=== PATIENT | male | born 1950 | race Caucasian/White ===

== ENCOUNTER 2017-04-13 05:53 | Day surgery (SDC) | payer OTHER ==
[~2017-04-13] VITALS: Ht 177.8 cm; Wt 88.9 kg
[2017-04-13] MEDS ORDERED: NS 1000P @30 MLS/HR (KVO) IV SCH (06:15)
[2017-04-13] MEDS ORDERED: ATEN25TA PO (06:45)
[2017-04-13] MEDS ORDERED: RAMI10CA PO (06:45)
[2017-04-13] MEDS ORDERED: OMEG100010 PO (06:45)
[2017-04-13] MEDS ORDERED: CLOP75TA PO (06:45)
[2017-04-13] MEDS ORDERED: ROSU40 PO (06:45)
[2017-04-13] MEDS ORDERED: FOLI-11 PO (06:45)
[2017-04-13] MEDS ORDERED: ASPI81CH37 CHEW (06:45)
[2017-04-13 06:46] VITALS: BP 163/85; PULSE 54; RESP 17; TEMP 98.1; O2SAT 99
[2017-04-13 07:13] LABS: BASOPHIL # 0.1 TH/MM3 (0-0.2); BASOPHIL % 1.5 % (0.0-2.0); EOSINOPHIL # 0.3 TH/MM3 (0-0.4); EOSINOPHIL % 3.9 % (0.0-4.0); HEMATOCRIT 46.9 % (39.0-51.0); HEMO FLAGS DIFF FINAL; LYMPH % 23.7 % (9.0-44.0); LYMPHOCYTE # 1.6 TH/MM3 (1.0-4.8); MEAN CELL VOLUME 92.6 FL (80.0-100.0); MEAN CORPUSCULAR HEMOGLOBIN 30.9 PG (27.0-34.0); MEAN CORPUSCULAR HGB CONC 33.4 % (32.0-36.0); MONO % 11.4 % (0.0-8.0); NEUT % 59.5 % (16.0-70.0); PLATELET COUNT 237 TH/MM3 (150-450); RED BLOOD COUNT 5.07 MIL/MM3 (4.50-5.90); WHITE BLOOD COUNT 6.7 TH/MM3 (4.0-11.0)
[2017-04-13 07:20] LABS: APTT (PATIENT) 29.2 SEC (24.3-30.1); PROTHROMBIN TIME - PATIENT 11.1 SEC (9.8-11.6)
[2017-04-13 07:26] LABS: BICARBONATE 29.1 MEQ/L (21.0-32.0); POTASSIUM 3.7 MEQ/L (3.5-5.1)
[2017-04-13] MEDS ORDERED: IOHEXOL 350 MG/ML 100 ML BTL (for Cath Lab) OTHER ONE (07:41)
[2017-04-13] MEDS ORDERED: IOHEXOL 350 MG/ML 50 ML BTL (for Cath Lab) OTHER ONE (07:41)
[2017-04-13] MEDS ORDERED: HEPARIN-NS/PF INJ 500 ML ONE (07:47)
[2017-04-13] MEDS ORDERED: MIDAZOLAM HCL 2 MG/2 ML VIAL ONE ×3 (07:47→09:12)
--- NOTE | 2017-04-13 10:11 | CATHPROC ---
[place] HIS Report Study Information Study Number Admission Scheduled Start Study Start Apr 13 2017 5:53AM 04/13/2017 Apr 13 2017 7:41AM [place] Service Cardiac Catheterization Admit Source Facility Department Other [facility] - Search Engine Marketing Manager Physician and Clinical Staff Initial Shannan Contreras Hammer Smith Akua Mckenna,RN Recorder Gerald Bravo RCIS(BS) Scrub Sean BolañosRT(R) Procedures Performed Procedure Location (Site) Vessel Name Angiogram LV LV Ventricle Coronary Angiograms LCA Left Coronary Coronary Angiograms RCA Right Coronary Coronary Angiograms CHAMBERLAIN-LAD Left Coronary Coronary Angiograms SVG-DIAG Left Coronary Coronary Angiograms SVG-OM CIRC Coronary Angiograms SVG-RCA Right Coronary L Heart Cath Equipment Time Coat Agent Description Size Mfg Part Number Used/Scraped TRANSDUCER, TRUWAVE [id number] 08:05 VIGIL MCKENNA * Used W/STOCKCOCK *[id number] TRANSDUCER, TRUWAVE [id number] 08:22 VIGIL MCKENNA * Used W/STOCKCOCK *[id number]-502-10.0- INTRODUCER SET, 08:22 [employer] FR 5 SC-NT-U-SST Used MICROPUNCTURE, STIFFENED *[id number] 538-476 *[id number] [phone] *[id number] [phone] *[id number] [phone] *[id number] [phone] *[id number] [phone] *[id number] 538-453S *[id number] 08:22 [employer] PACK, CCL CUSTOM * Used *[id number] 08:22 [employer] PACER PEN, SKIN DUAL W/ RULER * Used *[id number] 08:22 [employer] MEDICAL WIRE, 3MMJ .035 180CM 180CM Used *[id number] 08:05 [employer] MEDICAL WIRE, 3MMJ .035 180CM 180CM Used *[id number] PROBE COVER, STERILE [id number] 08:22 [employer] * Used ULTRASOUND W/ GEL *[id number] 08:22 NAMIC MANIFOLD, 4 PORT * Used *[id number] 08:13 [employer]COMED OMNIPAQUE, 350 MG, 150ML 150ML [id number] Used 08:13 NYCOMED OMNIPAQUE, 350 MG, 150ML 150ML [id number] Used [id number] 08:22 TRIANA MEDICAL BLANKET,WARM AIR CCL * Used *[id number] 08:22 TERUMO MEDICAL SHEATH, FR4 TERUMO (10CM) FR 4 [id number] Used History: Allergies Allergy Reaction No Known Allergies History: Risk Factors Family History of Hypertension Dyslipidemia Previous LA Previous Heart Failure Premature CAD Yes Yes Yes No No Prior Valve Prior PCI Prior CABG Prior CABGDate Surgery No No Yes 11/12/1996 Cerebrovascular Peripheral Artery Chronic Lung On Dialysis Diabetes Disease Disease Disease No No No No No History: Stress Tests Stress or Imaging Studies Performed No History: Other Current Smoker Method Quit Packs a Day Years Used Pack Years No Cigarettes 1 Years Ago 1 20 20 Labs Hgb (g/dl) Hct (%) WBC (l/cumm) Platelets (thousands) 12.00-18.00 37.00-55.00 4.80-10.80 140.00-450.00 5.0 46.9 6.7 237 Glucose (mg/dl) BUN (mg/dl) Creatinine (mg/dl) BUN:Creatinine (1:x) 60.00-110.00 8.00-20.00 0.10-9.00 10.00-20.00 101 12 0.9 13.3 Na (meq/l) K (meq/l) 138.00-146.00 3.80-5.10 140 3.7 INR (PTT:PT) 0.50-2.00 1 CPK-MB (ng/ML) 0.00-7.00 Not Drawn Medication Medication Total Dose (Bolus/Oral) Medication Total Dosage/Unit 1% XYLOCAINE 20 mL FENTANYL 50 mcg VERSED 6 mg Medications (Bolus/Oral) Medication Time Given Dosage/Unit Administered By Reason VERSED 04/13/2017 8:36:00 AM 2 mg Akua Mckenna 2 mg VERSED given in lab by Akua Mckenna, RN in Left Antecubital via Peripheral IV. Ordered by Shannan Jensen. FENTANYL 04/13/2017 8:43:19 AM 50 mcg Akua Mckenna 50 mcg FENTANYL given in lab by Akua Mckenna, RN in Left Antecubital via Peripheral IV. Ordered by Shannan Cavanaugh. 1% XYLOCAINE 04/13/2017 8:46:01 AM 20 mL Shannan Cavanaugh 20 mL 1% XYLOCAINE given in lab by Shannan Cavanaugh in Right Groin via Subcutaneous. Ordered by Shannan Enrique. VERSED 04/13/2017 8:49:29 AM 1 mg Mckenna, Akua 1 mg VERSED given in lab by Akua Mckenna RN in Left Antecubital via Peripheral IV. Ordered by Shannan Jensen. VERSED 04/13/2017 8:52:00 AM 1 mg Mckenna, Akua 1 mg VERSED given in lab by Akua Mckenna RN in Left Antecubital via Peripheral IV. Ordered by Shannan Jensen. VERSED 04/13/2017 9:13:00 AM 1 mg Mckenna, Akua 1 mg VERSED given in lab by Akua Mckenna RN in Left Antecubital via Peripheral IV. Ordered by Shnanan Jensen. VERSED 04/13/2017 9:18:00 AM 1 mg Mckenna, Akua 1 mg VERSED given in lab by Akua Mckenna RN in Left Antecubital via Peripheral IV. Ordered by Shannan Jensen. Medication (Drip) Medication Time Given Dosage/Unit Concentration/Unit Diluent (ml) Solution IV Solutions 04/13/2017 7:42:17 AM 0 mL (IV) 500 NaCl .9 Patient arrived on IV Solutions in Left Antecubital via Peripheral IV. Pump/Drip Flow = 20 ml/hr usin g NaCl .9. Ordered by Shannan Cavanaugh. Initial Case Assessment Cardiovascular HR Rhythm NIBP Chest Pain 55 SINUS GALDINO 161/82 0 Edema Present Skin color Skin None Normal Warm Dry Circulatory - Right Pulses Dorsalis Pedis Femoral 2 2 Scale (0,1,2,3,4,d) Circulatory - Left Pulses Dorsalis Pedis Femoral 2 2 Scale (0,1,2,3,4,d) Circulatory - Lower Extremities Color Lower Right Color Lower Left Normal Normal Neurological State Oriented to time-place- Alert Moves all extremities person Respiration - General Respiration Rate SpO2 (%) (B/min) 18 100 Final Case Assessment Cardiovascular HR Rhythm NIBP Chest Pain 55 SINUS GALDINO 161/82 0 Edema Present Skin color Skin None Normal Warm Dry Circulatory - Right Pulses Dorsalis Pedis Femoral 2 2 Scale (0,1,2,3,4,d) Circulatory - Left Pulses Dorsalis Pedis Femoral 2 2 Scale (0,1,2,3,4,d) Circulatory - Lower Extremities Color Lower Right Color Lower Left Normal Normal Neurological State Oriented to time-place- Alert Moves all extremities person Respiration - General Respiration Rate SpO2 (%) (B/min) 18 100 Chronological Log Time Study Chronological Log 7:41:49 Patient arrived via Bed. 7:41:50 Patient Name, D.O.B, / Armband Verified By R.N. 7:41:51 Consent signed by the physician and the patient and verified by the Search Engine Marketing Manager staff. 7:41:52 Pre-op and post- op instructions given; patient acknowledges understanding of instructions. 7:41:54 Verbal Stimulation=2 Physical Stimulation=2 Airway=2 Respiration=2 TOTAL=8. (0=absent, 1=li mited, 2=present) 7:42:12 Patient has been NPO for Less than 6Hrs. 7:42:13 Skin Breakdown- 7:42:13 Patient Warmer Placed on the Table. 7:42:16 A # 20 IV was noted in the Antecubital (left). Grade = 0 Patient arrived on IV Solutions in Left Antecubital via Peripheral IV. Pump/Drip Flow = 20 ml/h r using NaCl .9. Ordered 7:42:17 by Shannan Cavanaugh. 7:42:17 History and physical on the chart or being dictated. Assessment: Initial Case, HR=55 BPM, Rhythm=SINUS GALDINO, OQNR=096/82 mmhg, Chest Pain=0, Edema=N one, Color=Normal, Skin = Warm, Dry Right Pulses: Shan Ped=2, Femoral=2 Left Pulses: Shan Ped=2, Femoral=2 7:42:18 Lower Right Extremities: Color=Normal Lower Left Extremities: Color=Normal Neurological: State=Alert, Ox3, [place] Respiration: Resp=18 B/min, XeT0=058 % Vitals capture started with the following parameters, Patient=Adult, Interval=5 min, Initial Pre pbpam=844 mmHg, 7:48:36 Deflation Rate=5 mmHg 7:49:16 HR=52 bpm, SXRU=460/84 mmhg, OlN1=669.0 %, Resp=16 B/min, Pain=0, Moncho=10, Tinoco=2 7:55:02 HR=51 bpm, DSIV=433/82 mmhg, NwY4=947.0 %, Resp=16 B/min, Pain=0, Moncho=10, Tinoco=2 7:56:50 Pressure channel 1 zeroed. 7:59:18 HR=53 bpm, LCQP=638/86 mmhg, SpO2=99.0 %, Resp=16 B/min, Pain=0, Moncho=10, Tinoco=2 8:01:56 Reference ECG taken 8:02:36 Bilateral groins prepped with 2% chlorhexidine, and with a 3 min. waiting time. 8:02:40 MD paged 8:04:19 HR=51 bpm, NEAI=387/84 mmhg, LyY2=662.0 %, Resp=19 B/min, Pain=0, Moncho=10, Tinoco=2 8:09:20 HR=54 bpm, QOIK=957/85 mmhg, HgJ4=647.0 %, Resp=17 B/min, Pain=0, Moncho=10, Tinoco=2 8:14:23 HR=55 bpm, FCMU=215/87 mmhg, LaC7=478.0 %, Resp=16 B/min, Pain=0, Moncho=10, Tinoco=2 8:19:22 HR=55 bpm, EYJH=602/83 mmhg, SpO2=99.0 %, Resp=17 B/min, Pain=0, Moncho=10, Tinoco=2 8:24:21 HR=55 bpm, TGHA=631/81 mmhg, SpO2=99.0 %, Resp=15 B/min, Pain=0, Moncho=10, Tinoco=2 8:30:07 HR=56 bpm, NTYN=934/89 mmhg, VsI8=652.0 %, Resp=15 B/min, Pain=0, Moncho=10, Tinoco=2 8:34:23 HR=54 bpm, OGLN=670/87 mmhg, UiJ8=421.0 %, Resp=18 B/min, Pain=0, Moncho=10, Tinoco=2 8:35:00 MD arrived. 2 mg VERSED given in lab by Akua Mckenna RN in Left Antecubital via Peripheral IV. Ordered by Mao, 8:36:00 Zaraun. 8:39:24 HR=60 bpm, UKXA=425/87 mmhg, SpO2=99.0 %, Resp=16 B/min, Pain=0, Moncho=10, Tinoco=2 50 mcg FENTANYL given in lab by Akua Mckenna, RN in Left Antecubital via Peripheral IV. Ord ered by Mao, 8:43:19 Humayun. 8:44:23 HR=66 bpm, JHNV=375/83 mmhg, SpO2=98.0 %, Resp=19 B/min, Pain=0, Moncho=10, Tinoco=2 Time Out. Correct patient, correct procedure,correct physician, power injector not loaded with c ontrast with surgical 8:44:44 team present. Time Out Concurred by , individual staff in procedure 8:45:34 Case Start 20 mL 1% XYLOCAINE given in lab by Shannan Cavanaugh in Right Groin via Subcutaneous. Ordered by Mao, 8:46:01 [place]ump[place]. 8:46:56 Access site was Right Femoral Artery. A INTRODUCER SET, MICROPUNCTURE, STIFFENED FR 5 was advanced into the Fem Art (right) using the 8:47:01 Percutaneous technique. A SHEATH, FR4 TERUMO (10CM) FR 4 was exchanged in the Fem Art (right). This was necessary in ord er to 8:47:06 accomodate a larger catheter. A JL 4.0 INFINITI CATHETER FR 4 was advanced over a wire. OMNIPAQUE, 350 MG, 150ML 150ML was use d for 8:47:19 injections. 8:49:24 HR=57 bpm, IQQC=377/81 mmhg, SpO2=99.0 %, Resp=17 B/min, Pain=0, Moncho=10, Tinoco=2 1 mg VERSED given in lab by Akua Mckenna, BAN in Left Antecubital via Peripheral IV. Ordered by Mao, 8:49:29 [place]umpat[place]un. Recorded Pressure: Ao, HR=61, Condition=Condition 1 8:49:40 (Aorta) Ao 158/78/110 8:50:41 The LCA was injected and visualized at various angles. OMNIPAQUE, 350 MG, 150ML 150ML used. 1 mg VERSED given in lab by Akua Mckenna, RN in Left Antecubital via Peripheral IV. Ordered by Mao, 8:52:00 Humayun. 8:52:03 Catheter was removed A 3DRC INFINITI CATHETER FR 4 was advanced over a wire. OMNIPAQUE, 350 MG, 150ML 150ML was used for 8:53:35 injections. 8:53:36 The RCA was injected and visualized at various angles. OMNIPAQUE, 350 MG, 150ML 150ML used. 8:54:26 HR=66 bpm, IBMZ=271/83 mmhg, SpO2=96.0 %, Resp=13 B/min, Pain=0, Moncho=10, Tinoco=2 8:57:02 Catheter was removed A MPA-2 INFINITI CATHETER FR 4 was advanced over a wire. OMNIPAQUE, 350 MG, 150ML 150ML was used for 8:57:04 injections. 8:58:32 The SVG-RCA was injected and visualized at various angles. OMNIPAQUE, 350 MG, 150ML 150ML us ed. 8:59:25 HR=66 bpm, FKDE=879/84 mmhg, SpO2=98.0 %, Resp=16 B/min 9:01:29 Catheter was removed 9:02:18 A LCB INFINITI FR 4 was advanced over a wire. OMNIPAQUE, 350 MG, 150ML 150ML was used for in jections. 9:04:17 The SVG-DIAG was injected and visualized at various angles. OMNIPAQUE, 350 MG, 150ML 150ML u sed. 9:04:24 HR=68 bpm, SNYU=457/82 mmhg, SpO2=98.0 %, Resp=18 B/min, Pain=0, Moncho=10, Tinoco=2 9:08:01 Catheter was removed 9:08:35 A IM INFINITI CATHETER FR 4 was advanced over a wire. OMNIPAQUE, 350 MG, 150ML 150ML was use d for injections. 9:09:16 The CHAMBERLAIN-LAD was injected and visualized at various angles. OMNIPAQUE, 350 MG, 150ML 150ML u sed. 9:09:25 HR=68 bpm, NZYY=165/82 mmhg, SpO2=98.0 %, Resp=18 B/min, Pain=0, Moncho=10, Tinoco=2 1 mg VERSED given in lab by Akua Mckenna, RN in Left Antecubital via Peripheral IV. Ordered by Mao, 9:13:00 Humayun. 9:14:24 HR=62 bpm, MATH=849/87 mmhg, SpO2=99.0 %, Resp=16 B/min, Pain=0, Moncho=10, Tinoco=2 9:16:39 Catheter was removed A AL 1 INFINITI CATHETER FR 4 was advanced over a wire. OMNIPAQUE, 350 MG, 150ML 150ML was used for 9:17:01 injections. 1 mg VERSED given in lab by Akua Mckenna RN in Left Antecubital via Peripheral IV. Ordered by Mao, 9:18:00 Humayun. 9:19:27 HR=63 bpm, UEJK=623/87 mmhg, SpO2=99.0 %, Resp=15 B/min, Pain=0, Moncho=10, Tinoco=2 9:21:09 The SVG-OM was injected and visualized at various angles. OMNIPAQUE, 350 MG, 150ML 150ML use d. 9:21:58 Catheter was removed A PIGTAIL ANG. INFINITI CATHETER FR 4 was advanced over a wire. OMNIPAQUE, 350 MG, 150ML 150ML w as used 9:22:00 for injections. 9:22:29 The LV was injected at 8 cc/sec for a total of 32. OMNIPAQUE, 350 MG, 150ML 150ML used. Recorded Pressure: LV, HR=63, Condition=Condition 1 9:23:02 (Left Ventricle) LV 162/3/14 9:24:28 HR=65 bpm, LBUW=666/85 mmhg, SpO2=97.0 %, Resp=18 B/min, Pain=0, Moncho=10, Tinoco=2 Recorded Pressure: LV, Ao, HR=67, Condition=Condition 1 9:24:53 (Left Ventricle) LV 147/-2/15, (Aorta) Ao 159/79/113 9:25:34 Catheter was removed 9:25:48 Case End Assessment: Final Case, HR=55 BPM, Rhythm=SINUS GALDINO, DVFA=313/82 mmhg, Chest Pain=0, Edema=Non e, Color=Normal, Skin = Warm, Dry Right Pulses: Shan Ped=2, Femoral=2 Left Pulses: Shan Ped=2, Femoral=2 9:27:14 Lower Right Extremities: Color=Normal Lower Left Extremities: Color=Normal Neurological: State=Alert, Ox3, [place] Respiration: Resp=18 B/min, WmV2=029 % 9:27:31 Sheath removed; pressure applied to access site. 9:29:25 HR=62 bpm, MYWL=428/84 mmhg, SpO2=99.0 %, Resp=17 B/min, Pain=0, Moncho=10, Tinoco=2 9:34:59 HR=63 bpm, LIEK=293/86 mmhg, SpO2=99.0 %, Resp=15 B/min, Pain=0, Moncho=10, Tinoco=2 9:37:55 Sterile dressing applied to site 9:37:56 No case complications noted. 9:37:59 Cine recording checked. 9:38:02 Bedside Report will be given. 9:38:05 Contrast Scanned 9:38:10 A Left Heart Cath was performed. 9:38:11 Patient moved to stretcher 9:39:25 HR=61 bpm, FHLW=312/90 mmhg, SpO2=97.0 %, Resp=20 B/min, Pain=0, Moncho=10, Tinoco=2 End Study - Contrast Media Used In Study Contrast Total Opened (mL) Total Used (mL) Total Wasted (mL) Omnipaque 110 110 0 End Study - Maximum Contrast Load Max Contrast Load (mL) 493.9 End Study - Radiation Exposure Fluoro Time (minutes) 11.5 End Study - Patient Disposition Complications Transferred To No Telemetry Bed
--- NOTE | 2017-04-13 12:10 | EKG ---
Date Performed: 04/13/2017 Time Performed: 06:52:02 PTAGE: 66 years EKG: Sinus bradycardia Normal ECG except for rate NO PREVIOUS TRACING DOCTOR: Simeon Chan Interpretating Date/Time 04/13/2017 12:08:10
--- NOTE | 2017-04-14 18:49 | MP ---
cc: SHANNAN CAVANAUGH MD DATE OF SURGERY 04/13/17 PROCEDURE Cardiac catheterization. INDICATION 1. Catheterization with increasing unstable angina. 2. Prior history of bypass surgery in 1996 x4 CONSENT Full informed consent was obtained prior to procedure. Risks of , bleeding, myocardial function, perforation, aspiration, foreseen and unforeseen complications were reviewed. The risk of stent placement, bypass surgery were reviewed. The patient fully appeared to understand the risks. PROCEDURE IN DETAIL The patient draped and prepped in the usual manner. The right femoral artery was entered using a micropuncture technique with ultrasound via the 4-Stateless sheath. Left and right coronary catheters were used to intubate the right and left coronaries. Pigtail catheter left ventricle. Multiple angiographic view were carried out. At the end of the catheterization procedure, all catheters and sheaths were removed. Manual pressure applied until good hemostasis was achieved. The patient returned to room in stable condition. FINDINGS HEMODYNAMIC RESULTS Aortic pressure 159/79 with a mean of 113, left ventricle pressure 147 with a left ventricular end diastolic pressure of 15. There was no evidence of gradient on pullback across the LV outflow tract on aortogram. LEFT VENTRICULOGRAM The overall ejection fraction was estimated at 55%. There was no evidence of significant mitral regurgitation or mural thrombus. CORONARIES The left main was a medium size and had some mild diffuse plaquing but no significant disease. The left anterior descending artery was a large vessel. It had a 99% proximal stenosis x2. Intermediate ramus was large and free of significant disease. The circumflex vessel was a large vessel. In the proximal circumflex, there was a 50% stenosis. The OM1 had a long 75-90% occlusion which was about 3 cm in length. It ended in a nice size OM1 which had an occluded graft to this vessel. The remainder of the circumflex was a medium-sized vessel with two small obtuse marginal branches. The right coronary artery was a dominant vessel. It had a 75-90% proximal stenosis with evidence of a medium-sized RV branch. Just distal to this was a 99% stenosis. There was evidence of competitive flow in the distal right. There was also evidence of significant competitive flow in the LAD. The vein graft to the right coronary was a widely patent vein graft that filled the right coronary antegradely and retrogradely. It appeared to be anastomosed in the region of the crux. The posterior descending artery was filled by this graft and the posterior descending artery had a 75% mid graft stenosis. This was a medium-sized vessel. The posterolateral branch had no significant disease but was a small to medium-sized vessel. There was a saphenous vein graft to a diagonal branch that filled the LAD retrogradely and antegradely. This was a widely patent graft. There was a totally occluded graft to the OM with evidence of thrombus suggesting this was the angina producing lesions. It was thrombosed with very poor filling with EVERT grade 0-I flow. There was evidence of staining of this entire vessel. The left internal mammary artery was widely patent and had an excellent anastomosis to the LAD which was a medium-sized vessel. CONCLUSION Well-preserved left ventricle ejection fraction, severe three-vessel coronary artery disease as outlined above. Patent vein grafts x3 which are surprisingly in good condition given the age of the grafts of about 20 years. The graft to the circumflex is occluded which is the angina causing lesion. Proximal to the insertion of the graft in the OM1 there is a long 75-90% stenosis that would be a high-risk salvage type angioplasty versus redo bypass. PLAN We will try medical management. If this is not successful, one might consider either re-bypass surgery to the OM1 and PDA versus high-risk salvage angioplasty. Shannan Cavanaugh MD, FRCP,[facility] SAMMY/ /9:54 AM /6:27 PM GISELA
== END 2017-04-13 15:02 | disposition home or self-care (01) ==
LOC: HDIC 05:53 → HDOC 05:53
PROVIDERS: ATTEND Internal Medicine Cardiovascular Disease
DX: I25.110 Atherosclerotic heart disease of native coronary artery with unstable angina pectoris (principal); T82.858A Stenosis of other vascular prosthetic devices, implants and grafts, initial encounter; T82.898A Other specified complication of vascular prosthetic devices, implants and grafts, initial encounter; E78.5 Hyperlipidemia, unspecified; F17.210 Nicotine dependence, cigarettes, uncomplicated; Z79.02 Long term (current) use of antithrombotics/antiplatelets; Y83.2 Surgical operation with anastomosis, bypass or graft as the cause of abnormal reaction of the patient, or of later complication, without mention of misadventure at the time of the procedure
CPT/HCPCS: 80048; 85025; 85610; 85730; 93005; 93458; C1769; C1893; J1644; J2250; J3010; J7030; Q9967

== ENCOUNTER 2017-08-05 06:32 | Inpatient (IN) | payer OTHER ==
[~2017-08-05] VITALS: Ht 177.8 cm; Wt 88.7 kg
[~2017-08-05 06:32] MED LIST: ASPI81CH37 CHEW; ATEN25TA PO; CLOP75TA PO; FOLI-11 PO; OMEG100010 PO; RAMI10CA PO; ROSU40 PO
[2017-08-05 06:33] VITALS: BP 129/71; PULSE 73; RESP 16; TEMP 98.2; O2SAT 98
[2017-08-05] MEDS ORDERED: PIPERACIL-TAZO 4.5 GM PREMIX 100 ML IV STA (07:58)
[2017-08-05] MEDS ORDERED: methylPREDNISolone SOD SUCC 125 MG/2 ML VIAL IV PUSH ONE (08:00)
[2017-08-05] MEDS ORDERED: SODIUM CHLOR 0.9% 1000 ML INJ 1,000 ML IV ONE (08:00)
[2017-08-05 08:47] LABS: AUTOMATED NEUTROPHIL # 6.1 TH/MM3 (1.8-7.7); BASOPHIL # 0.1 TH/MM3 (0-0.2); BASOPHIL % 0.8 % (0.0-2.0); EOSINOPHIL # 0.3 TH/MM3 (0-0.4); EOSINOPHIL % 3.2 % (0.0-4.0); HEMO FLAGS DIFF FINAL; LYMPH % 14.5 % (9.0-44.0); LYMPHOCYTE # 1.3 TH/MM3 (1.0-4.8); MEAN CELL VOLUME 91.7 FL (80.0-100.0); MEAN CORPUSCULAR HEMOGLOBIN 31.6 PG (27.0-34.0); MEAN CORPUSCULAR HGB CONC 34.5 % (32.0-36.0); MONO % 13.1 % (0.0-8.0); NEUT % 68.4 % (16.0-70.0); PLATELET COUNT 267 TH/MM3 (150-450); RED BLOOD COUNT 4.69 MIL/MM3 (4.50-5.90); RED CELL DISTRIBUTION WIDTH 13.1 % (11.6-17.2); WHITE BLOOD COUNT 8.9 TH/MM3 (4.0-11.0)
--- NOTE | 2017-08-05 08:52 | PD ---
HPI Chief Complaint: ENT Complaint Time Seen by Provider: 07:58 Travel History International Travel<30 days: No Contact w/Intl Traveler<30days: No Traveled to known affect area: No History of Present Illness HPI 66-year-old male with history of CAD status post CABG, had stent placed 10 days ago, presents to the ER today because he states that since Sunday he started having some discomfort in his throat and started having swelling of his right neck which has been worsening. He states that he has discomfort with swallowing. He denies any drooling, difficulty breathing, fevers, or any other symptoms. He states that he had some nasal congestion and his had some similar symptoms as well and at first she ignored it but it is getting more uncomfortable. Modifying Factors: None Associated Signs & Symptoms: Worsening right neck swelling, pain with swallowing Risk Factors: None PFSH Past Medical History Hx Anticoagulant Therapy: Yes Cancer: No Cardiac Catheterization: Yes Cardiovascular Problems: Yes (BYPASS;STENT) Chest Pain: No Diabetes: No Gastrointestinal Disorders: No Glaucoma: No Hepatitis: No Hiatal Hernia: No Hypertension: No Respiratory: No Integumentary: No Thyroid Disease: No Past Surgical History Coronary Artery Bypass Graft: Yes Coronary Stent: Yes Thoracic Surgery: Yes (CABGx4) Other Surgery: Yes Social History Alcohol Use: Yes (SOCIALLY) Tobacco Use: No Substance Use: No Allergies-Medications (Allergen,Severity, Reaction): Coded Allergies: No Known Allergies (Unverified , 08/05/17) Reported Meds & Prescriptions Reported Meds & Active Scripts Active Reported Mill[place] 3 1000 mg (Milltown-3 Fatty Acids) 1 Cap Cap 3,000 Mg PO DAILY Virt-Vipin Forte 2.5-25-2 mg (Folic Vpsj-Epliqqyzrh-Lwkipnpa) 1 Tab Tab Unknown Dose PO DAILY Aspirin Low Dose (Aspirin) 81 Mg Chew 81 Mg CHEW DAILY Clopidogrel (Clopidogrel Bisulfate) 75 Mg Tab 75 Mg PO EVERY OTHER DAY Atenolol 25 Mg Tab 12.5 Mg PO DAILY Ramipril 10 Mg Cap 10 Mg PO DAILY Crestor (Rosuvastatin Calcium) 40 Mg Tab 40 Mg PO DAILY Review of Systems Except as stated in HPI: all other systems reviewed are Neg Physical Exam Narrative GENERAL: Well-developed elderly white male patient currently in mild distress. Awake and oriented 3. SKIN: Focused skin assessment warm/dry. HEAD: Atraumatic. Normocephalic. EYES: Pupils equal and round. No scleral icterus. No injection or drainage. ENT: Mucosa pink and moist. There is notable edema and erythema of the posterior pharynx as well as the uvula with more pronounced edema in the right compared to the left. Airway patent. Nasal turbinates appear normal without nasal blood, purulent drainage or septal hematoma. NECK: Trachea midline. No JVD. There is a palpable right submandibular area and neck edema, questionable mass measuring around 2 cm in size. Mildly tender to palpation. CARDIOVASCULAR: Regular rate and rhythm. No murmur appreciated. RESPIRATORY: No accessory muscle use. Clear to auscultation. Breath sounds equal bilaterally. GASTROINTESTINAL: Abdomen soft, non-tender, nondistended. Hepatic and splenic margins not palpable. MUSCULOSKELETAL: No obvious deformities. No clubbing. No cyanosis. No edema. NEUROLOGICAL: Awake and alert. No obvious cranial nerve deficits. Motor grossly within normal limits. Normal speech. PSYCHIATRIC: Appropriate mood and affect; insight and judgment normal. Data Data Last Documented VS Vital Signs Date Time Temp Pulse Resp B/P (MAP) Pulse Ox O2 Delivery O2 Flow Rate FiO2 08/05/17 08:20 18 08/05/17 06:33 98.2 73 129/71 (90) 98 Room Air Orders Orders Comprehensive Metabolic Panel (08/05/17 07:58) Prothrombin Time / Inr (Pt) (08/05/17 07:58) Act Partial Throm Time (Ptt) (08/05/17 07:58) Blood Culture (08/05/17 07:58) Group A Rapid Strep Screen (08/05/17 07:58) Throat Culture (08/05/17 07:58) Ct Soft Tiss Neck W Iv Cont (08/05/17 ) Methylprednisolone So Succ Inj (Solumedr (08/05/17 08:00) Piperacil-Tazo 4.5 Gm Premix (Zosyn 4.5 (08/05/17 07:58) Sodium Chlor 0.9% 1000 Ml Inj (Ns 1000 M (08/05/17 08:00) Lactic Acid Sepsis Protocol (08/05/17 07:58) Complete Blood Count With Diff (08/05/17 07:58) Iohexol 350 Inj (Omnipaque 350 Inj) (08/05/17 09:25) Strep Culture (Group A) (08/05/17 09:05) Diphenhydramine Inj (Benadryl Inj) (08/05/17 10:15) Consult Ent (08/05/17 ) (Hub Use Only)Inp Phy Cons/Ref (08/05/17 ) Admit Order (Ed Use Only) (08/05/17 10:29) Labs Laboratory Tests Test 08/05/17 08:30 White Blood Count 8.9 TH/MM3 Red Blood Count 4.69 MIL/MM3 Hemoglobin 14.8 GM/DL Hematocrit 43.0 % Mean Corpuscular Volume 91.7 FL Mean Corpuscular Hemoglobin 31.6 PG Mean Corpuscular Hemoglobin Concent 34.5 % Red Cell Distribution Width 13.1 % Platelet Count 267 TH/MM3 Mean Platelet Volume 6.7 FL Neutrophils (%) (Auto) 68.4 % Lymphocytes (%) (Auto) 14.5 % Monocytes (%) (Auto) 13.1 % Eosinophils (%) (Auto) 3.2 % Basophils (%) (Auto) 0.8 % Neutrophils # (Auto) 6.1 TH/MM3 Lymphocytes # (Auto) 1.3 TH/MM3 Monocytes # (Auto) 1.2 TH/MM3 Eosinophils # (Auto) 0.3 TH/MM3 Basophils # (Auto) 0.1 TH/MM3 CBC Comment DIFF FINAL Differential Comment Prothrombin Time 11.2 SEC Prothromb Time International Ratio 1.0 RATIO Activated Partial Thromboplast Time 31.6 SEC Blood Urea Nitrogen 18 MG/DL Creatinine 1.09 MG/DL Random Glucose 109 MG/DL Total Protein 7.5 GM/DL Albumin 3.4 GM/DL Calcium Level 8.7 MG/DL Alkaline Phosphatase 53 U/L Aspartate Amino Transf (AST/SGOT) 20 U/L Alanine Aminotransferase (ALT/SGPT) 28 U/L Total Bilirubin 0.3 MG/DL Sodium Level 135 MEQ/L Potassium Level 4.1 MEQ/L Chloride Level 104 MEQ/L Carbon Dioxide Level 27.0 MEQ/L Anion Gap 4 MEQ/L Estimat Glomerular Filtration Rate 68 ML/MIN Lactic Acid Level 0.8 mmol/L MDM Medical Decision Making Medical Screen Exam Complete: Yes Emergency Medical Condition: Yes Medical Record Reviewed: Yes Interpretation(s) Laboratory Tests Test 08/05/17 08:30 Mean Platelet Volume 6.7 FL (7.0-11.0) Monocytes (%) (Auto) 13.1 % (0.0-8.0) Monocytes # (Auto) 1.2 TH/MM3 (0-0.9) Activated Partial Thromboplast Time 31.6 SEC (24.3-30.1) Random Glucose 109 MG/DL (74-106) Sodium Level 135 MEQ/L (136-145) Anion Gap 4 MEQ/L (5-15) Estimat Glomerular Filtration Rate 68 ML/MIN (>89) Last [address] 08/05/17 0000 Signed Impressions: Service Date/Time: Saturday, August 05, 2017 09:23 - CONCLUSION: Asymmetric fullness in the right tonsillar region with polypoid appearance projecting into the airway. There are adjacent enlarged level II lymph nodes. There is no abscess present and the finding could represent a mass. Consider correlation with direct visualization of this area. Branden Demarco MD Differential Diagnosis Right neck swelling, trouble swallowing: Abscess formation versus mass versus cellulitis versus sialadenitis Narrative Course CAT scans showing a questionable mass in the right neck and case was discussed with Dr. Dudley who would like me to medically admit the patient. Patient had been given IV antibiotics after blood cultures were drawn. He was given Solu- Medrol in the ER. Dr. Dudley would like him to continue on Decadron and IV antibiotics. He will like consult with admission to medical service. Case was discussed with Dr. Simeon for admission. Diagnosis Primary Impression: Mass of right side of neck Admitting Information Admitting Physician Requests: Admit Naheed Lord MD Aug 05, 2017 08:52
[2017-08-05 08:58] LABS: APTT (PATIENT) 31.6 SEC (24.3-30.1); PROTHROMBIN TIME - PATIENT 11.2 SEC (9.8-11.6)
[2017-08-05 09:06] LABS: ANION GAP 4 MEQ/L (5-15); AST (GOT) 20 U/L (15-37); BLOOD UREA NITROGEN 18 MG/DL (7-18); CHLORIDE 104 MEQ/L (98-107); GLOMERULAR FILTRATION RATE 68 ML/MIN (>89); POTASSIUM 4.1 MEQ/L (3.5-5.1); SODIUM (NA) 135 MEQ/L (136-145)
[2017-08-05 09:11] LABS: ALKALINE PHOSPHATASE 53 U/L (45-117); ALT (GPT) 28 U/L (12-78); TOTAL BILIRUBIN ADULT 0.3 MG/DL (0.2-1.0)
[2017-08-05] MEDS ORDERED: IOHEXOL 350 MG/ML 10 ML VIAL (for RAD DIAG) IV PUSH ONE (09:25)
--- NOTE | 2017-08-05 09:47 | RADRPT ---
EXAM DATE/TIME: 08/05/2017 09:23 [facility] COMPARISON: No previous studies available for comparison. INDICATIONS : Throat pain and swelling for five days. IV CONTRAST: 75 cc Omnipaque 350 (iohexol) IV RADIATION DOSE: 14.24 CTDIvol (mGy) MEDICAL HISTORY : Cardiovascular disease. SURGICAL HISTORY : CABG ENCOUNTER: Initial ACUITY: 4 - 6 days PAIN SCALE: 5/10 LOCATION: Bilateral neck TECHNIQUE: Volumetric scanning of the neck was performed. Using automated exposure control and adjustment of th e mA and/or kV according to patient size, radiation dose was kept as low as reasonably achievable to obtain optimal diagnostic quality images. DICOM format image data is available electronically for r eview and comparison. FINDINGS: NASOPHARYNX: The nasopharyngeal airway has a normal configuration. No mucosal thickening or mass is seen. OROPHARYNX: The intrinsic muscles of the tongue are symmetric. The there are calcifications in the tonsillar reg ions bilaterally. On the right there is a polypoid appearance projecting into the airway measuring ap proximately 15 x 13 mm. There is no prevertebral edema. LARYNX: The supraglottic, glottic, and infraglottic structures demonstrates no definite abnormality. SALIVARY GLANDS: The parotid and submandibular glands demonstrate no abnormality. LYMPH NODES: There are enlarged a right level II lymph nodes measuring up to 13 mm in short axis diameter. THYROID: Homogeneous enhancement without evidence of nodule. BONES: There are degenerative changes of the spine but no acute abnormality is seen. Visualized upper lung zones and intracranial structures demonstrate no acute finding. CONCLUSION: Asymmetric fullness in the right tonsillar region with polypoid appearance projecting into the airway . There are adjacent enlarged level II lymph nodes. There is no abscess present and the finding could represent a mass. Consider correlation with direct visualization of this area. Branden Demarco MD on August 05, 2017 at 9:39 Board Certified Radiologist. This report was verified electronically.
[2017-08-05] MEDS ORDERED: diphenhydrAMINE HCL 50 MG/ML VIAL IV PUSH ONE (10:15)
[2017-08-05] MEDS ORDERED: ONDANSETRON HCL 4 MG/2 ML VIAL IVP PRN (10:45)
[2017-08-05] MEDS ORDERED: MORPHINE SULFATE 4 MG/ML INJ IV PUSH PRN ×2 (10:45)
[2017-08-05] MEDS ORDERED: ENOXAPARIN SODIUM 40 MG/0.4 ML SYRINGE SQ SCH (10:45)
[2017-08-05] MEDS ORDERED: NALOXONE HCL 0.4 MG/ML AMP IV PUSH PRN (10:45)
[2017-08-05] MEDS: SODIUM CHLOR 0.9% 1000 ML INJ 1,000 ML IV SCH ×2 (11:20→20:32)
[2017-08-05 11:25] VITALS: BP 169/79; PULSE 81; RESP 17; O2SAT 99
--- NOTE | 2017-08-05 11:42 | HHI.HP ---
[facility] No Primary Care Physician Admission Diagnosis right neck mass Diagnoses: Chief Complaint: Neck pain Travel History International Travel<30 Days: No Contact w/Intl Traveler <30 Da: No Traveled to Known Affected Are: No History of Present Illness The patient is a 66-year-old male with a past medical history of CAD status post CABG who is presenting to the hospital with right neck swelling, difficulty swallowing and significant pain in the area. The patient says that his symptoms of difficulty swallowing, right neck swelling and neck pain started on Sunday. He said that last night he had a rum and Coke and when he swallowed it and made the right-sided neck pain significantly worse. He rates the pain as a 10 out of 10 in severity. He also feels the pain in his right ear. He mentioned this morning he was brushing his teeth and he coughed up some blood. He also mentioned that he coughed up a blood clot while getting swabbed in the throat in the emergency department. He denies any fevers or headache. The patient mentions that 12 days ago he went to the [facility] and had a cardiac stent placed. He said prior to that he had significant chest pain with minimal exertion such as taking a shower. He says his cardiac symptoms have resolved at this point. Review of Systems Except as stated in HPI: all other systems reviewed are Neg Past Family Social History Past Medical History CAD s/p CABG and 1 stent HLP Allergies: Coded Allergies: No Known Allergies (Unverified , 08/05/17) Active Ordered Medications Current Medications Medications (Trade) Dose Ordered Sig/Nadja Route Start Time Stop Time Status Last Admin Sodium Chloride 1,000 ml @ 100 mls/hr Q10H IV 08/05/17 10:32 08/05/17 11:20 (NS Flush) 2 ml UNSCH PRN IV FLUSH 08/05/17 10:45 (NS Flush) 2 ml BID IV FLUSH 08/05/17 21:00 (Zofran Inj) 4 mg Q6H PRN IVP 08/05/17 10:45 (Lovenox Inj) 40 mg Q24H SQ 08/05/17 10:45 08/05/17 11:20 (Morphine Inj) 2 mg Q3H PRN IV PUSH 08/05/17 10:45 (Morphine Inj) 4 mg Q3H PRN IV PUSH 08/05/17 10:45 08/05/17 11:21 (Narcan Inj) 0.4 mg UNSCH PRN IV PUSH 08/05/17 10:45 Clindamycin Phosphate 600 mg/ Sodium Chloride 104 ml @ 208 mls/hr Q8H IV 08/05/17 14:00 (Decadron Inj) 8 mg Q8HR IV PUSH 08/05/17 14:00 Family History CAD Social History Quit years ago. He is a social drinker. Physical Exam Vital Signs Vital Signs Date Time Temp Pulse Resp B/P (MAP) Pulse Ox O2 Delivery O2 Flow Rate FiO2 08/05/17 11:25 81 17 169/79 (109) 99 Room Air 08/05/17 08:20 18 08/05/17 06:33 98.2 73 16 129/71 (90) 98 Room Air Physical Exam GENERAL: Well-developed male in NAD. SKIN: Focused skin assessment warm/dry. HEAD: Atraumatic. Normocephalic. EYES: Pupils equal and round. No scleral icterus. No injection or drainage. ENT: Mucosa pink and moist. There is notable edema and erythema of the posterior pharynx as well as the uvula with more pronounced edema in the right compared to the left. Airway patent. Nasal turbinates appear normal without nasal blood, purulent drainage or septal hematoma. NECK: Trachea midline. No JVD. There is a palpable right submandibular area and neck edema. Mildly tender to palpation. No supraclavicular adenopathy appreciated. CARDIOVASCULAR: Regular rate and rhythm. No murmur appreciated. RESPIRATORY: No accessory muscle use. Clear to auscultation. Breath sounds equal bilaterally. GASTROINTESTINAL: Abdomen soft, non-tender, nondistended. Hepatic and splenic margins not palpable. MUSCULOSKELETAL: No obvious deformities. No clubbing. No cyanosis. No edema. NEUROLOGICAL: Awake and alert. No obvious cranial nerve deficits. Motor grossly within normal limits. Normal speech. PSYCHIATRIC: Appropriate mood and affect; insight and judgment normal. Laboratory Laboratory Tests Test 08/05/17 08:30 White Blood Count 8.9 Red Blood Count 4.69 Hemoglobin 14.8 Hematocrit 43.0 Mean Corpuscular Volume 91.7 Mean Corpuscular Hemoglobin 31.6 Mean Corpuscular Hemoglobin Concent 34.5 Red Cell Distribution Width 13.1 Platelet Count 267 Mean Platelet Volume 6.7 Neutrophils (%) (Auto) 68.4 Lymphocytes (%) (Auto) 14.5 Monocytes (%) (Auto) 13.1 Eosinophils (%) (Auto) 3.2 Basophils (%) (Auto) 0.8 Neutrophils # (Auto) 6.1 Lymphocytes # (Auto) 1.3 Monocytes # (Auto) 1.2 Eosinophils # (Auto) 0.3 Basophils # (Auto) 0.1 CBC Comment DIFF FINAL Differential Comment Prothrombin Time 11.2 Prothromb Time International Ratio 1.0 Activated Partial Thromboplast Time 31.6 Blood Urea Nitrogen 18 Creatinine 1.09 Random Glucose 109 Total Protein 7.5 Albumin 3.4 Calcium Level 8.7 Alkaline Phosphatase 53 Aspartate Amino Transf (AST/SGOT) 20 Alanine Aminotransferase (ALT/SGPT) 28 Total Bilirubin 0.3 Sodium Level 135 Potassium Level 4.1 Chloride Level 104 Carbon Dioxide Level 27.0 Anion Gap 4 Estimat Glomerular Filtration Rate 68 Lactic Acid Level 0.8 Date/Time Source Procedure Growth Status 08/05/17 08:35 Blood Peripheral Aerobic Blood Culture Pending Received 08/05/17 08:35 Blood Peripheral Anaerobic Blood Culture Pending Received 08/05/17 09:05 Throat Group A Streptococcus Screen Pending Received Result Diagram: 08/05/17 0830 08/05/17 0830 Imaging Last Impressions Neck CT 08/05/17 0000 Signed Impressions: Service Date/Time: Saturday, August 05, 2017 09:23 - CONCLUSION: Asymmetric fullness in the right tonsillar region with polypoid appearance projecting into the airway. There are adjacent enlarged level II lymph nodes. There is no abscess present and the finding could represent a mass. Consider correlation with direct visualization of this area. MD Tyron Rodriguez VTE Risk Assessment Tyron VTE Risk Assessment: Mod/High Risk (score >= 2) Caprini Risk Assessment Model Point Value = 1 Point Value = 2 Point Value = 3 Point Value = 5 Age 41-60 Minor surgery BMI > 25 kg/m2 Swollen legs Varicose veins or History of unexplained or recurrent spontaneous Oral contraceptives or hormone replacement Sepsis (< 1 month) Serious lung disease, including pneumonia (< 1 month) Abnormal pulmonary function Acute myocardial infarction Congestive heart failure (< 1 month) History of inflammatory bowel disease Medical patient at bed rest Age 61-74 Arthroscopic surgery Major open surgery (> 45 min) Laparoscopic surgery (> 45 min) Malignancy Confined to bed (> 72 hours) Immobilizing plaster cast Central venous access Age >= 75 History of VTE Family history of VTE Factor V Leiden Prothrombin [id number] Lupus anticoagulant Anticardiolipin antibodies Elevated serum homocysteine Heparin-induced thrombocytopenia Other congenital or acquired thrombophilia Stroke (< 1 month) Elective arthroplasty Hip, pelvis, or leg fracture Acute spinal cord injury (< 1 month) Prophylaxis Regimen Total Risk Factor Score Risk Level Prophylaxis Regimen 0-1 Low Early ambulation 2 Moderate Order ONE of the following: *Sequential Compression Device (SCD) *Heparin 5000 units SQ BID 3-4 Higher Order ONE of the following medications: *Heparin 5000 units SQ TID *Enoxaparin/Lovenox 40 mg SQ daily (WT < 150 kg, CrCl > 30 mL/min) *Enoxaparin/Lovenox 30 mg SQ daily (WT < 150 kg, CrCl > 10-29 mL/min) *Enoxaparin/Lovenox 30 mg SQ BID (WT < 150 kg, CrCl > 30 mL/min) AND/OR *Sequential Compression Device (SCD) 5 or more Highest Order ONE of the following medications: *Heparin 5000 units SQ TID (Preferred with Epidurals) *Enoxaparin/Lovenox 40 mg SQ daily (WT < 150 kg, CrCl > 30 mL/min) *Enoxaparin/Lovenox 30 mg SQ daily (WT < 150 kg, CrCl > 10-29 mL/min) *Enoxaparin/Lovenox 30 mg SQ BID (WT < 150 kg, CrCl > 30 mL/min) AND *Sequential Compression Device (SCD) Assessment and Plan Assessment and Plan Neck mass The patient has experienced several days of right-sided neck pain and neck swelling. He started coughing up blood clots on the day of admission. CT of the neck showed: Asymmetric fullness in the right tonsillar region with polypoid appearance projecting into the airway; There are adjacent enlarged level II lymph nodes; There is no abscess present and the finding could represent a mass. ENT was consulted by the ED. Nikita/p Ximena and Gildrol. Rapid strep negative. - start IV clindamycin and Decadron. - keep the pt NPO with IVFs. - monitor airway. Oxygen as needed. - follow up with ENT. - follow throat and blood cultures. CAD S/p CABG 20 years ago and stent 12 days prior to admission. - continue ASA and Plavix. Would not recommend holding for procedure at this time s/t recent cath. - resume rest of cardiac regimen once able to swallow more effectively. Hypertension Blood pressure elevation secondary to pain. - Continue with pain control as needed. - Resume home medications when swallowing is improved. PPx: Lovenox Code Status Full Discussed Condition With Dr. Mathews, pt, nurse Physician Certification 2 Midnight Certification Type: Admission for Inpatient Services Order for Inpatient Services The services are ordered in accordance with Medicare regulations or non- Medicare payer requirements, as applicable. In the case of services not specified as inpatient-only, they are appropriately provided as inpatient services in accordance with the 2-midnight benchmark. Estimated LOS (days): 2 days is the estimated time the patient will need to remain in the hospital, assuming treatment plan goals are met and no additional complications. Post-Hospital Plan: Home Vaibhav Arellano DO Aug 05, 2017 11:42
[2017-08-05 12:30] VITALS: BP 142/68; PULSE 63; RESP 20; TEMP 97.1; O2SAT 97
[2017-08-05] MEDS ORDERED: DEXAMETHASONE SOD PHOS 4 MG/ML VIAL IV PUSH SCH (14:00)
[2017-08-05] MEDS: CLOPIDOGREL 75 MG TAB PO SCH (15:04)
[2017-08-05] MEDS: ATORVASTATIN 80 MG TAB PO SCH (15:04)
[2017-08-05] MEDS: ASPIRIN 81 MG CHEW TAB CHEW SCH (15:04)
[2017-08-05 15:50] VITALS: BP 130/72; PULSE 64; RESP 20; TEMP 97.4; O2SAT 98
[2017-08-05] MEDS: CLINDAMYCIN INJ 600 MG in SODIUM CHLORIDE 0.9% INJ 100 ML IV SCH ×2 (15:50→22:35)
[2017-08-05 20:05] VITALS: BP 134/67; PULSE 68; RESP 17; TEMP 98; O2SAT 95
[2017-08-05] MEDS: SODIUM CHLORIDE 0.9% FLUSH 10 ML FLUSH IV FLUSH SCH (20:35)
--- NOTE | 2017-08-05 22:18 | MB ---
cc: ZEYAD DUDLEY MD DATE OF CONSULTATION 08/05/2017 CHIEF COMPLAINT Neck pain. HISTORY OF THE PRESENT ILLNESS The patient is a pleasant 66-year-old male with a past history of coronary artery disease. He is status post CABG 12 days ago and has been on blood thinners since. He presented to the hospital with right neck swelling, difficulty swallowing and significant neck pain. He states his symptoms began on Sunday. Of note Sunday he was eating crab and noticed some right neck pain. He also notes that he put Goody powder over the area of the right oropharynx until it burned, and then he swallowed the fluid afterwards and he was doing that repeatedly to minimize the pain on the right. He noted that afterwards he started coughing up some blood from the right oropharynx in the area where he was putting on the Goody powder. He also noted that he had some blood clot when he swabbing the throat for the emergency department. He has no shortness of breath and notes that although he has a strong history of tobacco he has cut down over the last few months. He is doing well after his cardiac stent placed in the [facility]. ALLERGIES NO KNOWN DRUG ALLERGIES. He does note that his symptoms have markedly improved throughout the day of throat pain and his and he both agree that his right neck swelling is much improved. PHYSICAL EXAMINATION NECK: Revealed his right neck was without any gross tenderness or adenopathy currently. notes that it is much improved from earlier today. HEENT: On his oropharyngeal examination he does have some fullness of his soft tissue of the right lateral oropharynx. I was able to directly palpate this and it was in fact soft in nature and did not feel malignant. Flexible fiberoptic laryngoscopy revealed the fullness of the right oropharynx. However, there was a normal-appearing hypopharynx, normal larynx and true vocal cords were normal bilaterally with full mobility and airway was widely patent. I did show the the video scope as I was doing it, as well. ASSESSMENT Right pharyngeal fullness, likely inflammatory in nature and possibly infectious etiology. Allergic would be less likely as per the duration of his symptoms. Also we discussed the possibility of malignancy, although less likely because of the rapidness of the resolution of his pain and resolution of his neck swelling after the steroids. However, we cannot rule out malignancy because of his tobacco history. Thus I recommend continuing the patient's antibiotics and steroids. I told the patient because of the inflammation that he had and it was notable on CT scan he probably will stay until Sunday prior to be considering discharge and ideally if he was doing fine by Sunday he would be able to be discharged. I ordered the patient to get ice chips at this time. If the patient is doing well by tomorrow morning he can start on a liquid diet and if he does well by tomorrow afternoon I recommend him having a soft diet and to continue the soft diet while he is in-house. If he continues to progress well, I discussed with the patient refrain from having any hot foods at this time or any abrasive foods such as chips or anything with an abrasive surface as he is on the blood thinners and he is recovering from a likely inflammatory process. I recommend the patient's blood pressure be adequately maintained because of the history of bleeding recently. Ideally the blood pressure will show itself to be more improved upon as the pain continues to be well controlled. And also he has not had any pain at all for numerous hours today. I discussed all of this in depth with the patient and his . The patient will likely be able to be discharged on Sunday if all goes well. I gave the patient the option if that is the case to see him back on either Sunday or in clinic in our [place] location since they live in [facility]. The patient understands the above and I am certainly available for further consultation. Also of note we discussed the possibility of a PET CT scan in the future as an outpatient if there is a strong concern for malignancy after all of the swelling goes down because of his history of tobacco. The family does not want to consider this currently but I strongly made them aware of that being a possibility for us in a workup for his comprehensive evaluation of his condition. Zeyad Dudley MD CCP/ANTONIA /8:15 PM /9:49 PM GISELA
[2017-08-05] MEDS: DEXAMETHASONE SOD PHOS 20 MG/5 ML VIAL IV SCH (22:30)
[2017-08-06] VITALS (7 sets, daily range): BP systolic 114–131; BP diastolic 55–71; PULSE 62–73; RESP 14–18; TEMP 96.2–97.2; O2SAT 95–97
[2017-08-06] MEDS: SODIUM CHLOR 0.9% 1000 ML INJ 1,000 ML IV SCH ×2 (01:46→14:56)
[2017-08-06] MEDS: DEXAMETHASONE SOD PHOS 20 MG/5 ML VIAL IV SCH ×2 (06:27→14:47)
[2017-08-06] MEDS: SODIUM CHLORIDE 0.9% FLUSH 10 ML FLUSH IV FLUSH PRN ×2 (06:32→22:17)
[2017-08-06] MEDS: CLINDAMYCIN INJ 600 MG in SODIUM CHLORIDE 0.9% INJ 100 ML IV SCH ×3 (06:32→22:21)
[2017-08-06] MEDS: SODIUM CHLORIDE 0.9% FLUSH 10 ML FLUSH IV FLUSH SCH ×2 (09:49→21:00)
[2017-08-06] MEDS: ASPIRIN 81 MG CHEW TAB CHEW SCH (09:51)
[2017-08-06] MEDS: ATORVASTATIN 80 MG TAB PO SCH (09:51)
[2017-08-06] MEDS: CLOPIDOGREL 75 MG TAB PO SCH (09:51)
--- NOTE | 2017-08-06 10:18 | HHI.PR ---
Subjective Remarks Follow up neck swelling. Patient reports decreased throat pain. No difficulty swallowing today. Diet being advanced by ENT. Objective Vitals Vital Signs Date Time Temp Pulse Resp B/P (MAP) Pulse Ox O2 Delivery O2 Flow Rate FiO2 08/06/17 08:00 96.2 64 18 114/55 (74) 95 08/06/17 04:05 97.2 73 18 115/55 (75) 96 08/06/17 00:05 96.4 73 17 131/71 (91) 97 08/05/17 20:05 98.0 68 17 134/67 (89) 95 08/05/17 15:50 97.4 64 20 130/72 (91) 98 08/05/17 12:30 97.1 63 20 142/68 (92) 97 08/05/17 11:37 17 08/05/17 11:33 08/05/17 11:25 81 17 169/79 (109) 99 Room Air I/O 08/05/17 08/05/17 08/05/17 08/06/17 08/06/17 08/06/17 07:00 15:00 23:00 07:00 15:00 23:00 Intake Total 1100 ml 100 ml 1110 ml Balance 1100 ml 100 ml 1110 ml Intake IV Total 1100 ml 100 ml 1110 ml # Voids 1 2 Result Diagram: 08/05/17 0830 08/05/17 0830 Imaging Last Impressions Neck CT 08/05/17 0000 Signed Impressions: Service Date/Time: Saturday, August 05, 2017 09:23 - CONCLUSION: Asymmetric fullness in the right tonsillar region with polypoid appearance projecting into the airway. There are adjacent enlarged level II lymph nodes. There is no abscess present and the finding could represent a mass. Consider correlation with direct visualization of this area. Branden Demarco MD Objective Remarks General: No acute distress. Heart: Regular rate and rhythm. No murmur. Lungs: Clear to auscultation bilaterally. No wheezes, rales, or rhonchi. Breathing is nonlabored. Abdomen: Soft, nontender, nondistended. Extremities: No lower extremity edema. Psych: Alert and oriented. Procedures 08/05/17 fiberoptic laryngoscopy Urinary Catheter: No Vascular Central Line Catheter: No A/P Problem List: (1) Mass of right side of neck ICD Code: R22.1 - Localized swelling, mass and lump, neck Status: Acute Assessment and Plan 1. Neck swelling, questionable mass: Clinically improving. Continue IV antibiotics and steroids. Appreciate ENT recommendations. Diet advanced to soft. 2. CAD: Status post CABG 20 years ago and coronary artery stent placement 12 days prior to admission. Continue aspirin, Plavix. Resume ASHLEY inhibitor. Beta evy on hold secondary to low blood pressure. 3. Hypertension: Blood pressure has been borderline low. Restart ASHLEY inhibitor. Beta evy on hold. 4. DVT prophylaxis: PIERRE Bailey. Discharge Planning Anticipate discharge home tomorrow if symptoms continue to improve. Saul Braxton MD Aug 06, 2017 10:18
[2017-08-06] MEDS: RAMIPRIL 5 MG CAP PO SCH (11:35)
[2017-08-06] MEDS: DEXAMETHASONE SOD PHOS 4 MG/ML VIAL IV SCH (22:16)
[2017-08-07 00:05] VITALS: BP 129/64; PULSE 53; RESP 17; TEMP 96.1; O2SAT 98
[2017-08-07] MEDS: SODIUM CHLOR 0.9% 1000 ML INJ 1,000 ML IV SCH (02:55)
[2017-08-07 04:05] VITALS: BP 122/64; PULSE 68; RESP 17; TEMP 96.8; O2SAT 97
[2017-08-07] MEDS: SODIUM CHLORIDE 0.9% FLUSH 10 ML FLUSH IV FLUSH PRN (05:41)
[2017-08-07] MEDS: DEXAMETHASONE SOD PHOS 4 MG/ML VIAL IV SCH (05:41)
[2017-08-07] MEDS: CLINDAMYCIN INJ 600 MG in SODIUM CHLORIDE 0.9% INJ 100 ML IV SCH (05:46)
[2017-08-07 08:00] VITALS: BP 134/63; PULSE 65; RESP 18; TEMP 96.5; O2SAT 98
[2017-08-07] MEDS ORDERED: PRED10PA PO (08:12)
[2017-08-07] MEDS ORDERED: CLIN1CAP6 PO (08:12)
--- NOTE | 2017-08-07 08:13 | HHI.DCPOC ---
Discharge Care Plan Diagnosis: (1) Mass of right side of neck Goals to Promote Your Health * To prevent worsening of your condition and complications * To maintain your health at the optimal level Directions to Meet Your Goals Take your medications as prescribed Follow your dietary instruction Follow activity as directed Keep your appointments as scheduled Take your immunizations and boosters as scheduled If your symptoms worsen call your PCP, if no PCP go to Urgent Care Center or Emergency Room Smoking is Dangerous to Your Health. Avoid second hand smoke Call the 24-hour hour crisis hotline for domestic abuse at Saul Braxton MD Aug 07, 2017 08:13
[2017-08-07] MEDS ORDERED: LACTCHW3 CHEW (08:18)
--- NOTE | 2017-08-07 08:18 | HHI.PR ---
Subjective Remarks Follow up neck swelling. Patient has no complaints at this time. Wants to go home. Denies difficulty swallowing. No dyspnea, chest pain, cough. Objective Vitals Vital Signs Date Time Temp Pulse Resp B/P (MAP) Pulse Ox O2 Delivery O2 Flow Rate FiO2 08/07/17 04:05 96.8 68 17 122/64 (83) 97 08/07/17 00:05 96.1 53 17 129/64 (85) 98 08/06/17 20:05 96.3 62 18 119/60 (79) 97 08/06/17 17:38 97 21 08/06/17 16:00 96.2 66 14 115/58 (77) 96 08/06/17 12:00 97.1 71 16 131/61 (84) 97 I/O 08/06/17 08/06/17 08/06/17 08/07/17 08/07/17 08/07/17 07:00 15:00 23:00 07:00 15:00 23:00 Intake Total 1110 ml 870 ml 1585 ml Balance 1110 ml 870 ml 1585 ml Intake Oral 870 ml 480 ml IV Total 1110 ml 1105 ml # Voids 2 3 2 # Bowel Movements 1 1 Result Diagram: 08/05/17 0830 08/05/17 0830 Imaging Last Impressions Neck CT 08/05/17 0000 Signed Impressions: Service Date/Time: Saturday, August 05, 2017 09:23 - CONCLUSION: Asymmetric fullness in the right tonsillar region with polypoid appearance projecting into the airway. There are adjacent enlarged level II lymph nodes. There is no abscess present and the finding could represent a mass. Consider correlation with direct visualization of this area. Branden Demarco MD Objective Remarks General: No acute distress. HEENT: Mild swelling noted on lateral right neck. Oropharynx with edema and erythema on the right as well. Heart: Regular rate and rhythm. No murmur. Lungs: Clear to auscultation bilaterally. No wheezes, rales, or rhonchi. Breathing is nonlabored. Abdomen: Soft, nontender, nondistended. Extremities: No lower extremity edema. Psych: Alert and oriented. Procedures 08/05/17 fiberoptic laryngoscopy Urinary Catheter: No Vascular Central Line Catheter: No A/P Problem List: (1) Mass of right side of neck ICD Code: R22.1 - Localized swelling, mass and lump, neck Status: Acute Assessment and Plan 1. Neck swelling, questionable mass: Clinically improving. Appreciate ENT recommendations. Diet advanced to soft. Continue clindamycin. Switch to prednisone. 2. CAD: Status post CABG 20 years ago and coronary artery stent placement 12 days prior to admission. Continue aspirin, Plavix, ASHLEY inhibitor. Beta evy on hold secondary to low blood pressure. 3. Hypertension: Blood pressure has been borderline low. Continue ramipril. 4. DVT prophylaxis: PIERRE Bailey. Discharge Planning Discharge home in stable condition. Regular diet, soft. Activity as tolerated. Follow up with ENT on as scheduled. Saul Braxton MD Aug 07, 2017 08:17
[2017-08-07] MEDS: SODIUM CHLORIDE 0.9% FLUSH 10 ML FLUSH IV FLUSH SCH (09:00)
[2017-08-07] MEDS: ASPIRIN 81 MG CHEW TAB CHEW SCH (09:05)
[2017-08-07] MEDS: ATORVASTATIN 80 MG TAB PO SCH (09:05)
[2017-08-07] MEDS: RAMIPRIL 5 MG CAP PO SCH (09:05)
[2017-08-07] MEDS: CLOPIDOGREL 75 MG TAB PO SCH (09:06)
[2017-08-07 09:36] VITALS: O2SAT 100
== END 2017-08-07 09:46 | disposition home or self-care (01) | DRG 607 ==
LOC: NEPC 06:32 → NEDA 10:32 → HOCB 11:52
PROVIDERS: ADMIT Family Medicine; ATTEND Family Medicine
PROC: 0CJS8ZZ Inspection of Larynx, Via Natural or Artificial Opening Endoscopic (ICD-10-PCS; principal; 2017-08-05)
DX: R22.1 Localized swelling, mass and lump, neck (principal); R13.10 Dysphagia, unspecified; I10 Essential (primary) hypertension; I25.10 Atherosclerotic heart disease of native coronary artery without angina pectoris; Z95.1 Presence of aortocoronary bypass graft; Z95.5 Presence of coronary angioplasty implant and graft; Z79.01 Long term (current) use of anticoagulants; E78.5 Hyperlipidemia, unspecified; F17.210 Nicotine dependence, cigarettes, uncomplicated
CPT/HCPCS: 70491; 80053; 83605; 85025; 85610; 85730; 87040; 87070; 87081; 87880; 96361; 96365; 96375; J1100; J1200; J1650; J2270; J2543; J2930; J7030; Q9967